=== PATIENT | male | born 1955 | race Caucasian/White ===

== ENCOUNTER → 2020-08-21 | Outpatient (CLI) | payer OTHER ==
[2020-08-21 14:40] LABS: Appearance, Urine Clear (Clear); Bilirubin, Urine Neg (Neg); Blood, Urine Neg (Neg); Color, Urine Yellow (P-Yellow); Glucose Qualitative, Urine Neg (Neg); Ketones, Urine Neg (Neg); Leukocyte Esterase, Urine Neg (Neg); Nitrite, Urine Neg (Neg); Protein, Urine Neg (Neg); Urobilinogen, Urine NORM (Normal); pH, Urine 6.5 (5.0-8.0)
== END ==
LOC: LAB 13:07 → LAB SHORT 13:07
PROVIDERS: Family Medicine
DX: R35.0 Frequency of micturition (principal)
CPT/HCPCS: 81003

== ENCOUNTER 2023-03-23 09:10 | Day surgery (SDC) | payer BC | END 2023-03-23 11:57 | disposition home or self-care (01) | LOC: ORSCSDS 09:10 | PROC: 0DBN8ZX Excision of Sigmoid Colon, Via Natural or Artificial Opening Endoscopic, Diagnostic (ICD-10-PCS; principal; 2023-03-23) | PROC: 0DBM8ZX Excision of Descending Colon, Via Natural or Artificial Opening Endoscopic, Diagnostic (ICD-10-PCS; principal; 2023-03-23) | PROC: 0DBK8ZX Excision of Ascending Colon, Via Natural or Artificial Opening Endoscopic, Diagnostic (ICD-10-PCS; principal; 2023-03-23) | DX: Z12.11 Encounter for screening for malignant neoplasm of colon (principal); Z86.010 Personal history of colon polyps; D12.2 Benign neoplasm of ascending colon; K63.5 Polyp of colon; K64.8 Other hemorrhoids; Z79.899 Other long term (current) drug therapy ==

== ENCOUNTER 2023-06-06 07:32 | Day surgery (SDC) | payer BC ==
[~2023-06-06] VITALS: Ht 177.8 cm; Wt 93.2 kg
[2023-06-06] VITALS (18 sets, daily range): BP systolic 93–156; BP diastolic 60–100
[~2023-06-06 07:32] MED LIST: GABA300 PO; NAPROXEN500 MG PO; ROSUVASTATIN CA20 MG PO; SLEEP AID PO
[2023-06-06] MEDS ORDERED: MUPIROCIN1 G4 TOP (07:56)
--- NOTE | 2023-06-06 10:07 | NUR ---
GLASSES BROUGHT TO PACU FOR SAFE KEEPING DURING SURGERY. 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
--- NOTE | 2023-06-06 12:40 | NUR ---
PT HAS SENSATION AT HIP, NO SENSATION BELOW, ABLE TO WIGGLES TOES, CAP REFILL R FOOT <3 SEC, PINK WARM AND DRY
--- NOTE | 2023-06-06 12:56 | NUR ---
PT ARRIVED TO THE ROOM AT 1250. PT IS DROWSY BUT ORIENTED. DENIES PAIN. SENSATION AT L3. SPINAL SITE WNL.
--- NOTE | 2023-06-06 19:46 | NUR ---
SHIFT SUMMARY PT IS POD#0 FROM R [place] WITH DR. SHEPARD. PAIN MANAGED WITH PO PAIN MEDICATION. PT WORKED WITH THERAPY. PT REPORTS SOME NAUSEA THIS EVENING. REPORT GIVEN TO RAYSHAWN NAVA.
--- NOTE | 2023-06-06 21:23 | NUR ---
SHIFT ASSESSMENT SHIFT ASSESSMENT FOR NOC SHIFT TO BE TIMED AT 1950, NOT 1806.
[2023-06-07 00:10] VITALS: BP 127/88
[2023-06-07 03:58] VITALS: BP 132/82
--- NOTE | 2023-06-07 04:46 | NUR ---
SHIFT SUMMARY POD 1 R [facility]. NO ACUTE CHNAGES OVERNIGHT. VS WNL FOR PT. AQUACEL C/D/I. TOLERATING ORALS. PT REPORTS PAIN TOLERABLE, MEDICATED PER EMAR. PT AMBULATES USING A FWW c GB & SBA. PT VOIDS INDEPENDENTLY. ANTICIPATED DISCHARGE LATER TODAY. CALL LIGHT WITHIN REACH, BED IN LOWEST POSITION, WILL REPORT TO DAY RN.
[2023-06-07 04:51] LABS: BASOPHILS ABSOLUTE AUTO 0.02 K/mm3 (0.00-0.23); BASOPHILS PERCENT AUTO 0 % (0-2); EOSINOPHILS ABSOLUTE AUTO 0.19 K/mm3 (0.00-0.68); EOSINOPHILS PERCENT AUTO 2 % (0-6); Hematocrit 33.7 % (37.0-53.0); Hemoglobin 11.4 g/dL (13.5-17.5); IMMATURE GRAN ABSOLUTE AUTO 0.04 K/mm3 (0.00-0.10); IMMATURE GRAN PERCENT AUTO 0 % (0-1); LYMPHOCYTES ABSOLUTE AUTO 1.24 K/mm3 (0.84-5.20); LYMPHOCYTES PERCENT AUTO 14 % (21-46); MONOCYTES ABSOLUTE AUTO 0.94 K/mm3 (0.16-1.47); MONOCYTES PERCENT AUTO 10 % (4-13); Mean Corpuscular HGB Conc 33.8 g/dL (31.5-36.5); Mean Corpuscular Volume 92 fL (80-100); Mean Platelet Volume 9.8 fL (9.1-12.4); NEUTROPHILS ABSOLUTE AUTO 6.65 K/mm3 (1.96-9.15); NEUTROPHILS PERCENT AUTO 73 % (41-73); Platelet Count 192 K/mm3 (150-400); RDW Coefficient Variation 12.9 % (11.7-14.2); RDW Standard Deviation 42.2 fL (35.1-46.3); Red Blood Cell Count 3.68 M/mm3 (4.30-5.90); White Blood Cell Count 9.08 K/mm3 (4.00-11.30)
[2023-06-07 05:36] LABS: Bun/Creatinine Ratio 16.1 (12.0-20.0); Calcium, Blood 8.1 mg/dL (8.5-10.1); Creatinine, Blood 0.87 mg/dL (0.60-1.20); Potassium, Blood 3.6 mmol/L (3.5-5.5)
[2023-06-07 07:06] VITALS: BP 138/81
[2023-06-07] MEDS ORDERED: ASPI81CH PO (09:07)
[2023-06-07] MEDS ORDERED: Percocet 5-3251 EACH PO (09:07)
--- NOTE | 2023-06-07 10:53 | NUR ---
DISCHARGE NOTE: PATIENT AND WERE EDUCATED ON DISCHARGE INSTRUCTIONS. BOTH VERBALIZED UNDERSTANDING OF INSTRUCTIONS AND HAD NO FURTHER QUESTIONS AT THIS TIME. IV WAS TAKEN OUT AND WNL. HARD PERSCRIPTIONS WERE GIVEN TO THE . PAIN IS MANAGED WITH PO PAIN MEDS. HIS RIGHT HIP HAS AN AQAUCEL THAT IS C/D/I. DENIES NUMBNESS OR TINGLING IN ALL EXTREMITIES. HE IS TOLERATING PO INTAKE AND IS VOIDING. HE IS DRESSED AND HAS PERSONAL ITEMS IN THE ROOM GATHERED. HE WAS WHEELCHAIRED OUT TO HIS WIFES CAR TO BE TAKEN HOME.
== END 2023-06-07 10:56 | disposition home or self-care (01) ==
LOC: ORSCMMR 07:32 → ORD 09:15 → ORSCMMR 09:15 → ORD 10:15 → SURS 12:35 → ORSCMMR 06-07 10:56
PROVIDERS: Orthopaedic Surgery
PROC: 0SR90JZ Replacement of Right Hip Joint with Synthetic Substitute, Open Approach (ICD-10-PCS; principal; 2023-06-06 09:15)
DX: M16.11 Unilateral primary osteoarthritis, right hip (principal); E78.5 Hyperlipidemia, unspecified; Z79.899 Other long term (current) drug therapy
CPT/HCPCS: 36415; 72170; 80048; 85025; 97110; 97116; 97162; A9270; C1776; J0171; J0690; J0735; J1170; J1885; J2250; J2371; J2405; J2704; J2795; J7120